=== PATIENT | male | born 1990 | race Hispanic/Latino ===

== ENCOUNTER 2024-05-15 10:39 | Day surgery (SDC) | payer MEDICAID ==
[2024-05-15] VITALS (14 sets, daily range): BP systolic 85–130; BP diastolic 41–74; PULSE 71–93; RESP 12–16; TEMP 97.1–97.4
[~2024-05-15] VITALS: Ht 162.6 cm; Wt 40.4 kg
[~2024-05-15 10:39] MED LIST: CETI1SOL17 PO; CHOL2000 PO; FAMO10VI2 IV; LACO10SO12 PO; LACT10SO85 PO; LEVE100S7 PO; MULT9LIQ9 PO
[2024-05-15] MEDS ORDERED: proPOFol 10 MG/ML 20ML VIAL IV ONE (11:58)
[2024-05-15] MEDS: 0.9%NACL 1000ML 1,000 ML IV ONE (11:58)
== END 2024-05-15 14:30 | disposition home or self-care (01) ==
LOC: DAH 10:39 → ENDO 10:39
PROVIDERS: ATTEND Internal Medicine Gastroenterology
DX: K21.00 Gastro-esophageal reflux disease with esophagitis, without bleeding (principal); K94.23 Gastrostomy malfunction; K59.04 Chronic idiopathic constipation; G80.9 Cerebral palsy, unspecified; K31.89 Other diseases of stomach and duodenum; Z79.899 Other long term (current) drug therapy
CPT/HCPCS: 43246; 43239; J7030; J3490; A4620; A4215 ×2; A4223; A4222; A4221; A4663; A4606; J2704